=== PATIENT | female | born 1955 | race Two or more races ===

== ENCOUNTER 2021-10-04 11:13 | Emergency (ER) | payer OTHER, MEDICAID ==
[~2021-10-04] VITALS: Ht 167.6 cm; Wt 90.7 kg
[2021-10-04] MEDS ORDERED: traMADol HCL 50 MG TAB PO ONE (13:15)
[2021-10-04 14:09] VITALS: BP 156/74
== END 2021-10-04 14:30 | disposition home or self-care (01) ==
LOC: ER 11:15
DX: S82.152A Displaced fracture of left tibial tuberosity, initial encounter for closed fracture (principal); I10 Essential (primary) hypertension; E11.9 Type 2 diabetes mellitus without complications; E78.5 Hyperlipidemia, unspecified; F17.210 Nicotine dependence, cigarettes, uncomplicated; Z90.710 Acquired absence of both cervix and uterus; W18.39XA Other fall on same level, initial encounter; Y93.89 Activity, other specified; Y92.89 Other specified places as the place of occurrence of the external cause; Y99.8 Other external cause status
CPT/HCPCS: 29505; 73562